=== PATIENT | male | born 1955 | race Caucasian/White ===

== ENCOUNTER 2019-06-10 12:21 | Emergency (ER) | payer OTHER, MEDICAID ==
[~2019-06-10] VITALS: Ht 162.6 cm; Wt 79.4 kg
[2019-06-10 12:25] VITALS: BP 145/101
--- NOTE | 2019-06-10 13:27 | NUR ---
64 Y/O M C/O RIDDLE X 1 MONTH, WORSE X1 WEEK WITH 10/10 PAIN. PT STATES HE HAS BLURRY VISSION BOTH EYES. PERRLA LESS THAN 3. PT DENIES INJURY PRIOR TO RIDDLE. PT STATES HE HAS ARTHRITIS IN HIS BACK, WITH PAIN DESCRIBED RADIATING DOWN LEFT LEG. PT ON MONITOR, VSS 165/92 B/P. PT POSITIONED FOR COMFORT, SIDE RAIL X [address]. ALLERGIES: METOCLOPRAMIDE, HYDROCODONE, REGLAN
--- NOTE | 2019-06-10 13:46 | NUR ---
PT AMBULATED TO RESTROOM W/O DIFFICULTY.
--- NOTE | 2019-06-10 14:18 | NUR ---
20 G IV LT AC ESTABLISHED, ORDERED LABS DRAWN. PT CONSENT FOR CT W/WO CONTRAST SIGNED.
[2019-06-10 14:19] LABS: BASOPHILS # (AUTO) 0.1 K/uL (0.00-0.22); BASOPHILS % (AUTO) 0.4 % (0.0-2.0); EOSINOPHILS # (AUTO) 0.1 K/uL (0-0.4); EOSINOPHILS % (AUTO) 0.5 % (0.0-4.0); HEMATOCRIT 44.7 % (36-52); HEMOGLOBIN 14.8 g/dL (12.0-18.0); LYMPHOCYTES # (AUTO) 1.7 K/uL (2.0-11.5); LYMPHOCYTES % (AUTO) 12.2 % (20.5-51.1); MEAN CORPUSCULAR HEMOGLOBIN 32 pg (27-31); MEAN CORPUSCULAR HGB CONC 33 g/dL (33-37); MEAN CORPUSCULAR VOLUME 95.8 fL (80-94); MONOCYTES # (AUTO) 0.4 K/uL (0.8-1.0); MONOCYTES % (AUTO) 2.6 % (1.7-9.3); NEUTROPHILS # (AUTO) 11.6 K/uL (1.8-7.7); NEUTROPHILS % (AUTO) 84.3 % (42.2-75.2); PLATELET COUNT (AUTO) 314 K/uL (140-450); RED BLOOD CELL COUNT(AUTO) 4.67 MIL/uL (4.20-6.10); RED CELL DISTRIBUTION WIDTH 13.6 % (11.6-13.7); WHITE BLOOD COUNT (AUTO) 13.8 K/uL (4.8-10.8)
[2019-06-10 14:35] LABS: ALBUMIN 3.9 g/dL (3.4-5.0); ANION GAP 13.9 (8-16); CARBON DIOXIDE 27.4 mmol/L (21-32); CREATININE 1.2 mg/dL (0.6-1.3); POTASSIUM 4.3 mmol/L (3.5-5.1); TOTAL BILIRUBIN 0.6 mg/dL (0.0-1.0)
--- NOTE | 2019-06-10 15:07 | NUR ---
PT RESTING COMFORTABLY, VSS, SIDE RAIL X1 IN PLACE. PT INFORMED WAITING FOR LAB RESULTS PRIOR TO CT SCAN. PT GIVEN BLANKET FOR COMFORT.
--- NOTE | 2019-06-10 15:11 | NUR ---
PT TO CT FOR A SCAN BY WHEELCHAIR.
--- NOTE | 2019-06-10 15:28 | NUR ---
PT RETURNED FROM CT SCAN BY WHEELCHAIR.
[2019-06-10 16:14] VITALS: BP 142/98
--- NOTE | 2019-06-10 16:19 | NUR ---
Patient discharged with v/s stable. Written and verbal after care instructions given and explained. Patient alert, oriented and verbalized understanding of instructions. Ambulatory with steady gait. All questions addressed prior to discharge. ID band removed. Patient advised to follow up with PMD. Rx of HYDROCHLOROTHIAZIDE, NORCO given. Patient educated on indication of medication including possible reaction and side effects. Opportunity to ask questions provided and answered.
== END 2019-06-10 16:19 | disposition home or self-care (01) ==
LOC: MED 12:21
DX: R51 Headache (principal); I10 Essential (primary) hypertension; Z88.8 Allergy status to other drugs, medicaments and biological substances
CPT/HCPCS: 36415; 70470; 80053; 81002; 85025; 99284; Q9967

== ENCOUNTER 2019-07-11 17:51 | Emergency (ER) | payer OTHER, MEDICAID ==
[~2019-07-11] VITALS: Ht 167.6 cm; Wt 75.3 kg
[2019-07-11 17:54] VITALS: BP 155/95
--- NOTE | 2019-07-11 17:55 | NUR ---
PT AMBULATED TO BED 2, STEADY GAIT.
--- NOTE | 2019-07-11 18:45 | NUR ---
PT RETURNING FROM CT VIA WC.
--- NOTE | 2019-07-11 18:50 | NUR ---
64 Y/M PRESENTS TO ED WITH DAUGHTER FOR SINUS CONGESTION X 1 MONTH. PT ALSO REPORTS POST NASAL DRIP THAT IS BOTHERING HIS THROAT. PT HAS HX OF SINUS INFECTIONS. DENIES COUGH, RR EVEN AND UNLABORED. DENIES, N/V/D. REPORTS CHILLS. LUNGS CLEAR. HX- HTN, SINUS INFECTION
--- NOTE | 2019-07-11 20:17 | NUR ---
DR. SHAH AT BEDSIDE.
--- NOTE | 2019-07-11 20:17 | NUR ---
PT DISCHARGED BY DR. SHAH, AND WENT OVER ALL DISCHARGE INSTRUCTION.
[2019-07-11 20:39] VITALS: BP 124/71
== END 2019-07-11 20:17 | disposition home or self-care (01) ==
LOC: MED 17:51
DX: J01.10 Acute frontal sinusitis, unspecified (principal); I10 Essential (primary) hypertension; Z98.890 Other specified postprocedural states; Z88.1 Allergy status to other antibiotic agents; Z88.8 Allergy status to other drugs, medicaments and biological substances
CPT/HCPCS: 70450; 99284

== ENCOUNTER 2019-07-15 10:41 | Emergency (ER) | payer OTHER, MEDICAID ==
[~2019-07-15] VITALS: Ht 162.6 cm; Wt 74.8 kg
[2019-07-15 10:52] VITALS: BP 143/89
--- NOTE | 2019-07-15 11:36 | NUR ---
PT AMBULATED TO BED 03
--- NOTE | 2019-07-15 11:40 | NUR ---
64 Y/O MALE C/O HEADACHE AND NAUSEA X 5 DAYS. STATES ONE EPISODE OF VOMITING YESTERDAY. NASAL CONGESTION WITH DIFFICULTY BREATHING AT NIGHT. STATES HE HAS HAS MOIST, NONPRODUCTIVE COUGH. DENIES ABD PAIN/DIARRHEA. AFEBRILE AT THIS TIME. RR EVEN AND UNLABORED. DENIES CHEST PAIN. X 1 SIDE RAIL RAISED, BED LOCKED AND IN LOW POSITION. VSS MEDHX: HTN ALLERIGES: HYDROCODONE, REGLAN
--- NOTE | 2019-07-15 12:11 | NUR ---
DR PORTER AT BEDSIDE EXAMINING PT
--- NOTE | 2019-07-15 12:41 | NUR ---
Dr. Myers is re-evaluating the patient at bedside.
[2019-07-15 13:33] VITALS: BP 143/89
--- NOTE | 2019-07-15 13:34 | NUR ---
Patient discharged with v/s stable. Written and verbal after care instructions given and explained. Patient verbalized understanding. Ambulatory with steady gait. All questions addressed prior to discharge. Advised to follow up with PMD.
== END 2019-07-15 13:34 | disposition home or self-care (01) ==
LOC: MED 10:41
DX: R51 Headache (principal); I10 Essential (primary) hypertension; Z88.5 Allergy status to narcotic agent; Z88.8 Allergy status to other drugs, medicaments and biological substances
CPT/HCPCS: 99281; 99283

== ENCOUNTER 2022-04-11 09:24 | Emergency (ER) | payer OTHER, MEDICAID ==
[~2022-04-11] VITALS: Ht 167.6 cm; Wt 77.1 kg
[2022-04-11 09:37] VITALS: BP 143/92
--- NOTE | 2022-04-11 10:02 | NUR ---
[facility] and handed to CPT Kenan
[2022-04-11] MEDS ORDERED: PHEN-1877 PO (10:06)
[2022-04-11] MEDS ORDERED: CEPH-588 PO (10:06)
--- NOTE | 2022-04-11 10:13 | NUR ---
66/M PRESENTS TO ED WITH C/O LOWER ABDOMINAL PAIN, URINARY FREQUENCY AND DYSURIA X1 MONTH, DENIES TAKING MEDICATION FOR PAIN. DENIES N/V/D, FEVERS OR HEMATURIA.
[2022-04-11 10:17] LABS: APPEARANCE,URINE CLEAR (CLEAR); BILIRUBIN,URINE NEGATIVE (NEGATIVE); BLOOD, URINE TRACE-I (NEGATIVE); COLOR,URINE YELLOW (YELLOW); LEUKOCYTE ESTERASE ,URINE NEGATIVE (NEGATIVE); NITRITE, URINE NEGATIVE (NEGATIVE); UGLUCOSE NEGATIVE (NEGATIVE)
--- NOTE | 2022-04-11 10:18 | NUR ---
Patient discharged with v/s stable. Written and verbal after care instructions given and explained for Urinary Tract Infection. Patient alert, oriented and verbalized understanding of instructions. Ambulatory with steady gait. All questions addressed prior to discharge. ID band removed. Patient advised to follow up with PMD. Rx of Keflex, Pyridium given. Patient educated on indication of medication including possible reaction and side effects. Opportunity to ask questions provided and answered.
== END 2022-04-11 10:18 | disposition home or self-care (01) ==
LOC: MED 09:24
DX: N39.0 Urinary tract infection, site not specified (principal); I10 Essential (primary) hypertension; Z79.899 Other long term (current) drug therapy; Z88.5 Allergy status to narcotic agent; Z88.8 Allergy status to other drugs, medicaments and biological substances; Z90.49 Acquired absence of other specified parts of digestive tract; Z98.890 Other specified postprocedural states
CPT/HCPCS: 81001; 87086; 99283

== ENCOUNTER 2023-01-26 11:08 | Emergency (ER) | payer OTHER ==
[~2023-01-26] VITALS: Ht 162.6 cm; Wt 70.8 kg
[~2023-01-26 11:08] MED LIST: CEPH-588 PO; PHEN-1877 PO
[2023-01-26 11:16] VITALS: BP 138/78; PULSE 86; RESP 18; TEMP 98.3; O2SAT 99
[2023-01-26 13:12] LABS: BASOPHILS % (AUTO) 0.6 % (0.0-2.0); EOSINOPHILS # (AUTO) 0.2 K/uL (0-0.4); EOSINOPHILS % (AUTO) 2.4 % (0.0-4.0); HEMATOCRIT 42.5 % (36-52); HEMOGLOBIN 14.6 g/dL (12.0-18.0); LYMPHOCYTES # (AUTO) 1.9 K/uL (2.0-11.5); LYMPHOCYTES % (AUTO) 27.7 % (20.5-51.1); MEAN CORPUSCULAR HEMOGLOBIN 33 pg (27-31); MEAN CORPUSCULAR HGB CONC 34 g/dL (33-37); MEAN CORPUSCULAR VOLUME 95.4 fL (80-94); MONOCYTES # (AUTO) 0.4 K/uL (0.8-1.0); MONOCYTES % (AUTO) 5.5 % (1.7-9.3); NEUTROPHILS # (AUTO) 4.4 K/uL (1.8-7.7); NEUTROPHILS % (AUTO) 63.8 % (42.2-75.2); PLATELET COUNT (AUTO) 265 K/uL (140-450); RED BLOOD CELL COUNT(AUTO) 4.45 MIL/uL (4.20-6.10); RED CELL DISTRIBUTION WIDTH 13.5 % (11.6-13.7); WHITE BLOOD COUNT (AUTO) 6.9 K/uL (4.8-10.8)
[2023-01-26 13:31] LABS: ALANINE AMINOTRANSFERASE 32 U/L (12-78); ALKALINE PHOSPHATASE 75 U/L (50-136); ANION GAP 14.7 (8-16); ASPARTATE AMINOTRANSFERASE 18 U/L (15-37); CALCIUM 8.8 mg/dL (8.5-10.1); CARBON DIOXIDE 23.3 mmol/L (21-32); CHLORIDE 105 mmol/L (98-107); CREATININE 0.9 mg/dL (0.6-1.3); GFR ARICAN-AMERICAN 109 mL/min (>90); GFR NON ARICAN-AMERICAN 90 mL/min (>90); GLUCOSE 95 mg/dL (74-106); SODIUM SERUM 139 mmol/L (136-145); TOTAL BILIRUBIN 0.5 mg/dL (0.0-1.0); TOTAL PROTEIN, SERUM 7.3 g/dL (6.4-8.2); UREA NITROGEN, BLOOD 22 mg/dL (7-18)
[2023-01-26 13:33] LABS: INR 1.16 (0.8-1.2); PROTHROMBIN TIME 12.1 secs (10.8-13.4)
[2023-01-26 14:55] VITALS: BP 138/78; PULSE 86; RESP 18; TEMP 98.3; O2SAT 99
== END 2023-01-26 14:55 | disposition home or self-care (01) ==
LOC: MED 11:08
DX: M79.604 Pain in right leg (principal); M79.605 Pain in left leg; R07.89 Other chest pain; R20.0 Anesthesia of skin; I10 Essential (primary) hypertension; F17.290 Nicotine dependence, other tobacco product, uncomplicated; Z90.49 Acquired absence of other specified parts of digestive tract; Z88.5 Allergy status to narcotic agent; Z79.899 Other long term (current) drug therapy
CPT/HCPCS: 36415; 70450; 71045; 80053; 84484; 85025; 85610; 85730; 93005; 93970; 99285; Q0092

== ENCOUNTER 2023-02-19 10:05 | Emergency (ER) | payer OTHER ==
[~2023-02-19] VITALS: Ht 167.6 cm; Wt 74.8 kg
[2023-02-19 10:35] VITALS: BP 137/77; PULSE 86; RESP 18; TEMP 97.9; O2SAT 96
[2023-02-19 13:29] VITALS: BP 137/77; PULSE 86; RESP 18; TEMP 97.9; O2SAT 96
== END 2023-02-19 13:30 | disposition home or self-care (01) ==
LOC: MED 10:05
DX: M79.651 Pain in right thigh (principal); I10 Essential (primary) hypertension; M51.36 Other intervertebral disc degeneration, lumbar region; Z90.49 Acquired absence of other specified parts of digestive tract; Z98.890 Other specified postprocedural states; Z79.899 Other long term (current) drug therapy; Z79.2 Long term (current) use of antibiotics; Z88.8 Allergy status to other drugs, medicaments and biological substances; Z88.5 Allergy status to narcotic agent
CPT/HCPCS: 93005; 93925; 99284; Q0092